=== PATIENT | male | born 1980 | race African-American/Black ===

== ENCOUNTER 2018-02-13 19:36 | Emergency (ER) | payer MEDICAID, OTHER ==
[~2018-02-13] VITALS: Ht 177.8 cm; Wt 97.5 kg
[2018-02-13 19:53] VITALS: BP 149/93
[2018-02-13] MEDS ORDERED: IBUPROFEN 600 MG TAB PO ONE (23:45)
== END 2018-02-13 23:46 | disposition home or self-care (01) ==
LOC: ER 19:44
DX: S60.222A Contusion of left hand, initial encounter (principal); F17.210 Nicotine dependence, cigarettes, uncomplicated; F12.10 Cannabis abuse, uncomplicated; W22.8XXA Striking against or struck by other objects, initial encounter; Y93.89 Activity, other specified; Y92.89 Other specified places as the place of occurrence of the external cause; Y99.8 Other external cause status
CPT/HCPCS: 73130

== ENCOUNTER 2019-04-03 11:41 | Emergency (ER) | payer BC, MEDICAID ==
[~2019-04-03] VITALS: Ht 180.3 cm; Wt 95.3 kg
[2019-04-03] MEDS ORDERED: KETOROLAC TROMETH 60MG/2ML VIAL IM ONE (14:30)
[2019-04-03 14:43] VITALS: BP 128/90
== END 2019-04-03 15:00 | disposition home or self-care (01) ==
LOC: ER 11:44
DX: K08.89 Other specified disorders of teeth and supporting structures (principal); F17.210 Nicotine dependence, cigarettes, uncomplicated; F12.10 Cannabis abuse, uncomplicated
CPT/HCPCS: 96372; 99283; J1885

== ENCOUNTER 2019-04-11 13:17 | Inpatient (IN) | payer BC, MEDICAID ==
[~2019-04-11] VITALS: Ht 180.3 cm; Wt 91.6 kg
[2019-04-11] MEDS ORDERED: SODIUM CHLORIDE 0.9% 500 ML IVB ONE (13:26)
[2019-04-11] MEDS ORDERED: metroNIDAZOLE 500MG/100ML 100 ML IV ONE (14:00)
[2019-04-11 14:19] LABS: Basophils # (auto) 0.1 uL; Eosinophils # (auto) 0 uL; Nucleated Red Blood Cells % 0.1 %
[2019-04-11 14:20] LABS: Basophils % (auto) 1.4 % (0.0-2.0); Eosinophils % (auto) 0.4 % (0.0-7.0); Hematocrit 39.8 % (41.0-53.0); Hemoglobin 14.1 g/dL (13.5-17.5); Lymphocytes # (auto) 2.8 uL; Mean Corpuscular Hemoglobin 35.6 pg (28.0-32.0); Mean Corpuscular Hgb Conc. 35.3 g/dL (32.0-36.0); Mean Corpuscular Volume 100.6 fL (80.0-100.0); Monocytes # (auto) 0.7 uL; Monocytes % (auto) 6.1 % (0.0-12.0); Neutrophils # (auto) 7.2 uL; Neutrophils % (auto) 66.1 % (37.0-80.0); Platelet Count (auto) 190 10^3/uL (140-450); Red Blood Cells 3.96 10^6/uL (4.5-5.90); Red Cell Distribution Width 12.9 % (11.8-14.3); White Blood Cell 10.8 10^3/uL (4.4-10.8)
[2019-04-11 14:40] LABS: Albumin 3.6 g/dL (3.4-5.0); BUN/Creatinine Ratio 14.6; Calcium 8.6 mg/dL (8.5-10.1); Magnesium 2.2 mg/dL (1.6-2.6); Potassium 4.1 mmol/L (3.5-5.1)
[2019-04-11 14:43] LABS: Bilirubin, Total 0.4 mg/dL (0.2-1.0); Total Protein 6.8 g/dL (6.4-8.2)
[2019-04-11] MEDS ORDERED: ONDANSETRON HCL 4 MG/2 ML VIAL IV PRN (14:45)
[2019-04-11] MEDS ORDERED: NITROGLYCERIN 0.4 MG SL TAB SL PRN (14:45)
[2019-04-11] MEDS ORDERED: LEVOFLOXACIN 500MG 100 ML IV ONE (14:45)
[2019-04-11] MEDS ORDERED: MORPHINE SULF INJ 2 MG/ML SYRINGE 1ML IV PRN ×2 (14:45)
[2019-04-11] MEDS: SODIUM CHLORIDE 0.9% 1,000 ML IV SCH ×2 (15:11→21:51)
--- NOTE | 2019-04-11 17:22 | NUR ---
OPENING PATIENT ON THE FLOOR, WILL FOLLOW UP WITH ASSESSMENT
--- NOTE | 2019-04-11 18:00 | NUR ---
nurse note according to md miles notes, after patients acute inflammation possibly consider a colonoscopy
[2019-04-11] MEDS: FAMOTIDINE (10MG/ML) 2ML VL IV SCH (21:50)
[2019-04-11] MEDS: metroNIDAZOLE 500MG/100ML 100 ML IV SCH (21:51)
[2019-04-11 22:00] VITALS: BP 126/86
[2019-04-12] MEDS: metroNIDAZOLE 500MG/100ML 100 ML IV SCH ×3 (05:31→21:15)
[2019-04-12 06:34] LABS: INR 1.06 (0.9-1.15); Partial Thromboplastin Time 28.9 sec (23.64-32.05)
[2019-04-12 06:40] LABS: Basophils # (auto) 0 uL; Basophils % (auto) 0.2 % (0.0-2.0); Eosinophils # (auto) 0.1 uL; Hemoglobin 11.3 g/dL (13.5-17.5); Lymphocytes # (auto) 2.4 uL; Mean Corpuscular Hemoglobin 35.5 pg (28.0-32.0); Neutrophils # (auto) 5.7 uL; Nucleated Red Blood Cells % 0.1 %; Red Blood Cells 3.19 10^6/uL (4.5-5.90); White Blood Cell 8.8 10^3/uL (4.4-10.8)
[2019-04-12 06:43] LABS: Hematocrit 32.8 % (41.0-53.0); Lymphocytes % (auto) 27.6 % (10.0-50.0); Mean Corpuscular Hgb Conc. 34.5 g/dL (32.0-36.0); Mean Corpuscular Volume 102.8 fL (80.0-100.0); Monocytes # (auto) 0.6 uL; Monocytes % (auto) 7.2 % (0.0-12.0); Platelet Count (auto) 155 10^3/uL (140-450); Red Cell Distribution Width 12.9 % (11.8-14.3)
[2019-04-12 06:46] LABS: Potassium 4.1 mmol/L (3.5-5.1)
[2019-04-12 06:52] LABS: BUN/Creatinine Ratio 11.3; Calcium 7.7 mg/dL (8.5-10.1)
[2019-04-12 09:00] VITALS: BP 137/74
[2019-04-12] MEDS: LEVOFLOXACIN 500MG 100 ML IV SCH (09:24)
[2019-04-12] MEDS: FAMOTIDINE (10MG/ML) 2ML VL IV SCH ×2 (09:24→21:15)
[2019-04-12] MEDS: SODIUM CHLORIDE 0.9% 1,000 ML IV SCH ×2 (10:45→19:12)
[2019-04-12] MEDS ORDERED: HYDROcodone-ACET 5/325MG TAB PO PRN (11:45)
[2019-04-12 13:02] VITALS: BP 130/97
[2019-04-12 17:00] VITALS: BP 148/95
[2019-04-12 21:52] VITALS: BP 138/78
--- NOTE | 2019-04-12 22:30 | NUR ---
Received report from PAULINA Robertson
--- NOTE | 2019-04-12 22:45 | NUR ---
Rounds Patient sleeping no S/S of distress or pain noted. Respirations even and unlabored. Will continue to monitor.
[2019-04-13] MEDS: SODIUM CHLORIDE 0.9% 1,000 ML IV SCH (02:42)
[2019-04-13 04:58] VITALS: BP 136/76
[2019-04-13] MEDS: metroNIDAZOLE 500MG/100ML 100 ML IV SCH ×2 (06:30→14:00)
[2019-04-13 06:33] LABS: Basophils # (auto) 0.1 uL; Basophils % (auto) 0.8 % (0.0-2.0); Eosinophils # (auto) 0.1 uL; Eosinophils % (auto) 0.6 % (0.0-7.0); Hematocrit 33.9 % (41.0-53.0); Hemoglobin 11.8 g/dL (13.5-17.5); Lymphocytes # (auto) 3.1 uL; Lymphocytes % (auto) 35.4 % (10.0-50.0); Mean Corpuscular Hemoglobin 35.4 pg (28.0-32.0); Mean Corpuscular Hgb Conc. 34.7 g/dL (32.0-36.0); Monocytes # (auto) 0.6 uL; Monocytes % (auto) 6.3 % (0.0-12.0); Neutrophils % (auto) 56.9 % (37.0-80.0); Nucleated Red Blood Cells % 0.1 %; Platelet Count (auto) 171 10^3/uL (140-450); Red Blood Cells 3.32 10^6/uL (4.5-5.90); Red Cell Distribution Width 12.7 % (11.8-14.3); White Blood Cell 8.8 10^3/uL (4.4-10.8)
--- NOTE | 2019-04-13 07:20 | NUR ---
Opening Shift Note Assumed care of patient, awake and alert. No S/S of distress/SOB or abdominal pain. Instructed on POC-continue IV antibiotics, monitor and manage abdominal pain. Patient informed to call for assist PRN, will continue to monitor for changes Q1hr and PRN.
[2019-04-13 09:00] VITALS: BP 150/100
[2019-04-13] MEDS: LEVOFLOXACIN 500MG 100 ML IV SCH (10:17)
[2019-04-13] MEDS: FAMOTIDINE (10MG/ML) 2ML VL IV SCH (10:17)
[2019-04-13 13:00] VITALS: BP 131/85
[2019-04-13 13:12] VITALS: BP 131/85
--- NOTE | 2019-04-13 14:15 | NUR ---
Discharge Discharge instructions given as ordered. Encourage to follow up with Primary MD as instructed. All questions and concerns addressed. Patient verbalized understanding. Patient does not qualify for the pneumonia vaccine and it is no longer flu season, so no vaccines given in this admission. IV removed with catheter intact, pressure dressing applied. Patient went by himself with all personal belongings. No distress noted at time of departure.
== END 2019-04-13 14:15 | disposition home or self-care (01) | DRG 379 ==
LOC: ER 13:20 → TELE 13:57 → TELE-EAST 17:22 → EAST 04-12 15:39
PROVIDERS: ADMIT Internal Medicine; ATTEND Internal Medicine
DX: K57.33 Diverticulitis of large intestine without perforation or abscess with bleeding (principal); F17.210 Nicotine dependence, cigarettes, uncomplicated; F12.90 Cannabis use, unspecified, uncomplicated
CPT/HCPCS: 36415; 74176; 80048; 80053; 82150; 83690; 83735; 85025; 85610; 85730; 87493; 93005; 94761; 96365; 96366; 96375; G0378; J1956; J3490

== ENCOUNTER 2019-06-02 10:14 | Emergency (ER) | payer BC, MEDICAID ==
[~2019-06-02] VITALS: Ht 180.3 cm; Wt 81.6 kg
[2019-06-02] MEDS ORDERED: SODIUM CHLORIDE 0.9% 1,000 ML IVB ONE (10:35)
[2019-06-02 11:04] LABS: Urine Bacteria FEW /hpf (None Seen); Urine Blood Negative /uL (Negative); Urine Specific Gravity 1.022 (1.001-1.035); Urine WBC 1 /hpf (0 - 3)
[2019-06-02 11:11] LABS: Basophils # (auto) 0 uL; Basophils % (auto) 0.7 % (0.0-2.0); Eosinophils # (auto) 0 uL; Eosinophils % (auto) 0.2 % (0.0-7.0); Hematocrit 47.2 % (41.0-53.0); Hemoglobin 16.1 g/dL (13.5-17.5); Lymphocytes # (auto) 2.4 uL; Lymphocytes % (auto) 35.1 % (10.0-50.0); Mean Corpuscular Hemoglobin 35.3 pg (28.0-32.0); Mean Corpuscular Hgb Conc. 34.1 g/dL (32.0-36.0); Mean Corpuscular Volume 103.5 fL (80.0-100.0); Monocytes # (auto) 0.4 uL; Monocytes % (auto) 6.4 % (0.0-12.0); Neutrophils % (auto) 57.6 % (37.0-80.0); Platelet Count (auto) 177 10^3/uL (140-450); Red Blood Cells 4.57 10^6/uL (4.5-5.90); Red Cell Distribution Width 13.4 % (11.8-14.3); White Blood Cell 6.9 10^3/uL (4.4-10.8)
[2019-06-02 11:29] LABS: Calcium 8.8 mg/dL (8.5-10.1); Potassium 4.1 mmol/L (3.5-5.1)
[2019-06-02 11:32] LABS: BUN/Creatinine Ratio 9.5; Bilirubin, Total 0.2 mg/dL (0.2-1.0); Total Protein 7.6 g/dL (6.4-8.2)
[2019-06-02 11:34] VITALS: BP 145/109
== END 2019-06-02 12:21 | disposition home or self-care (01) ==
LOC: ER 10:17
DX: R10.32 Left lower quadrant pain (principal); F17.210 Nicotine dependence, cigarettes, uncomplicated; F12.10 Cannabis abuse, uncomplicated
CPT/HCPCS: 36415; 80053; 81001; 83690; 85025; 99283; J7030

== ENCOUNTER 2021-09-03 02:46 | Emergency (ER) | payer BC, MEDICAID ==
[~2021-09-03] VITALS: Ht 180.3 cm; Wt 81.6 kg
[2021-09-03] MEDS ORDERED: IBUPROFEN 800 MG TAB PO ONE (05:45)
[2021-09-03 07:48] VITALS: BP 155/107
== END 2021-09-03 07:54 | disposition home or self-care (01) ==
LOC: ER 02:46
DX: S02.5XXA Fracture of tooth (traumatic), initial encounter for closed fracture (principal); K04.7 Periapical abscess without sinus; F17.210 Nicotine dependence, cigarettes, uncomplicated; F12.10 Cannabis abuse, uncomplicated; X58.XXXA Exposure to other specified factors, initial encounter; Y93.89 Activity, other specified; Y92.89 Other specified places as the place of occurrence of the external cause; Y99.8 Other external cause status